=== PATIENT | female | born 1970 | race Caucasian/White ===

== ENCOUNTER → 2016-05-13 | Outpatient (CLI) | payer BC ==
[~2016-05-13] MED LIST: NASACORT AQ N16.5 GM NS; ZYRTEC 10MG10 MG PO; [UNRECOGNIZED DRUG - OTHER]; [UNRECOGNIZED DRUG - OTHER] PO; [UNRECOGNIZED DRUG - OTHER] PO
== END ==
LOC: COL.RAD 07:07
DX: R10.2 Pelvic and perineal pain (principal)

== ENCOUNTER → 2016-09-08 | Outpatient (CLI) | payer BC | LOC: MC.RAD 07:00 | DX: Z12.31 Encounter for screening mammogram for malignant neoplasm of breast (principal) ==

== ENCOUNTER → 2018-06-29 | Outpatient (CLI) | payer BC | LOC: COL.RAD 11:23 | DX: J32.9 Chronic sinusitis, unspecified (principal); J34.89 Other specified disorders of nose and nasal sinuses ==

== ENCOUNTER → 2018-08-31 | Outpatient (CLI) | payer BC | LOC: MC.RAD 07:00 | DX: Z12.31 Encounter for screening mammogram for malignant neoplasm of breast (principal) ==

== ENCOUNTER 2020-06-21 06:14 | Day surgery (SDC) | payer BC ==
[~2020-06-21] VITALS: Ht 172.7 cm; Wt 100.3 kg
[2020-06-21] VITALS (7 sets, daily range): BP systolic 115–130; BP diastolic 76–96; PULSE 60–85; TEMP 98.5
[2020-06-21] MEDS ORDERED: NASACORT OTC NS (06:56)
[2020-06-21] MEDS ORDERED: ZYRTEC 10MG10 MG PO (06:57)
--- NOTE | 2020-06-21 06:58 | NUR ---
TO RM 2 AT [id number]
--- NOTE | 2020-06-21 07:58 | NUR ---
Initial visit; Patient thanked Senior Sales Operations Manager for offering encouragement and prayer prior to her procedure this morning.
--- NOTE | 2020-06-21 08:10 | NUR ---
Pt returns from endo procedure via cart. Pt ambulates from cart to recliner with RN assist. Monitors on and alarms set. Call light within reach. Report received from FARIDEH Nassar. Pt alert and oriented. Pt denies pain or nausea. present in room. Pt requests muffin and sprite.
--- NOTE | 2020-06-21 08:40 | NUR ---
Pt taking food and drink well.
--- NOTE | 2020-06-21 09:28 | NUR ---
Discharge instructions given to pt and . All questions answered to their satisfaction. Handed to them are a thank you card, discharge instructions, and a discharge med sheet.
--- NOTE | 2020-06-21 09:35 | NUR ---
Pt transferred out of hospital via wheelchair and this RN to private vehicle driven by .
== END 2020-06-21 09:35 | disposition home or self-care (01) ==
LOC: SDCO 06:14
DX: Z12.11 Encounter for screening for malignant neoplasm of colon (principal); E66.9 Obesity, unspecified; E78.5 Hyperlipidemia, unspecified; R73.03 Prediabetes; F41.9 Anxiety disorder, unspecified; F32.9 Major depressive disorder, single episode, unspecified; Z79.899 Other long term (current) drug therapy; Z88.5 Allergy status to narcotic agent; Z88.6 Allergy status to analgesic agent; Z86.16 Personal history of COVID-19
CPT/HCPCS: J2704; J7030

== ENCOUNTER → 2021-07-18 | Outpatient (CLI) | payer BC ==
[~2021-07-18] MED LIST changes: +NASACORT OTC NS
== END ==
LOC: MC.RAD 04-11 07:15
DX: Z12.31 Encounter for screening mammogram for malignant neoplasm of breast (principal)

== ENCOUNTER → 2022-07-23 | Outpatient (CLI) | payer BC | LOC: MC.RAD 07:30 | DX: Z12.31 Encounter for screening mammogram for malignant neoplasm of breast (principal) ==

== ENCOUNTER → 2023-09-03 | Outpatient (CLI) | payer BC | LOC: MC.RAD 10:03 | DX: Z12.31 Encounter for screening mammogram for malignant neoplasm of breast (principal) ==